=== PATIENT | male | born 1930 | race Asian ===

== ENCOUNTER 2016-10-17 21:02 | Inpatient (IN) | payer OTHER ==
[~2016-10-17] VITALS: Ht 167.6 cm; Wt 51.7 kg
[~2016-10-17 21:02] MED LIST: CARAFATE1 GM PO; CRESTOR5 M1 PO; FLO4 PO; FOLIC ACID1 MG PO; LOVAZA1 G1 PO; NAMENDA10 M2 PO; PLA75 PO; POLYETHYLENE GL1 PO1 PO; PRILOSEC40 MG PO; PROSCAR5 MG PO; SINGULAIR10 MG PO
[2016-10-17 21:55] LABS: microscopic required? NO
[2016-10-17 21:55] LABS: BASOPHIL % 0.7 % (0-2); PLATELET COUNT 229 x10^3mcL (130-400); RED CELL DISTRIBUTION WIDTH 14.2 % (11.5-14.5)
[2016-10-17 22:01] LABS: urine erythrocyte NEGATIVE (NEGATIVE)
[2016-10-17 22:02] LABS: CALCIUM 8.7 mg/dL (8.5-10.1); CARBON DIOXIDE 24.4 mmol/L (21-32); CHLORIDE SERUM 104 mmol/L (98-107); CREATININE SERUM 1.4 mg/dL (0.7-1.3); GLUCOSE SERUM 137 mg/dL (74-106); POTASSIUM SERUM 4.4 mmol/L (3.5-5.1); SODIUM SERUM 139 mmol/L (136-145)
[2016-10-17 22:06] LABS: ALKALINE PHOSPHATASE 78 U/L (46-116); ALT/SGPT 29 U/L (16-63); AST/SGOT 24 U/L (15-37); BILIRUBIN TOTAL 1.17 mg/dL (0.20-1.00); TOTAL PROTEIN, SERUM 6.8 g/dL (6.4-8.2)
[2016-10-18] VITALS (8 sets, daily range): BP systolic 100–139; BP diastolic 55–69; Ht 167.6 cm; Wt 51.7 kg
[2016-10-18 00:46] LABS: MAGNESIUM 1.9 mg/dL (1.8-2.4); PHOSPHOROUS 3.1 mg/dL (2.5-4.9)
[2016-10-18 00:49] LABS: CHOLESTEROL/HDL RATIO 2.1
[2016-10-18 00:54] LABS: FREE T4 1.44 ng/dL (0.76-1.46); FREE THYROXINE INDEX 2.6 ug/dL (1.4-4.5)
[2016-10-18 00:56] LABS: T3 TOTAL 0.45 ng/mL
[2016-10-18 06:21] LABS: CALCIUM 7.8 mg/dL (8.5-10.1); CARBON DIOXIDE 21.5 mmol/L (21-32); CHLORIDE SERUM 107 mmol/L (98-107); CREATININE SERUM 1.1 mg/dL (0.7-1.3); GLUCOSE SERUM 107 mg/dL (74-106); MAGNESIUM 1.9 mg/dL (1.8-2.4); PHOSPHOROUS 2.9 mg/dL (2.5-4.9); POTASSIUM SERUM 3.7 mmol/L (3.5-5.1); SODIUM SERUM 138 mmol/L (136-145)
[2016-10-18 07:14] LABS: BASOPHIL % 0.1 % (0-2); PLATELET COUNT 177 x10^3mcL (130-400); RED CELL DISTRIBUTION WIDTH 14.1 % (11.5-14.5)
[2016-10-18] MEDS ORDERED: LEVAQUIN750 MG PO (17:49)
[2016-10-18] MEDS ORDERED: NOVAPLUS CLINDA1 SO1 IV (17:50)
[2016-10-18] MEDS ORDERED: IPRATROPIUM BROM3 M2 HHN ×2 (17:51)
[2016-10-18] MEDS ORDERED: LAC PO (17:52)
== END 2016-10-18 20:05 | disposition short-term general hospital (02) | DRG 177 ==
LOC: ED 21:02 → DU 23:11
PROVIDERS: Emergency Medicine; ADMIT Family Medicine
DX: J69.0 Pneumonitis due to inhalation of food and vomit (principal); G93.41 Metabolic encephalopathy; N17.0 Acute kidney failure with tubular necrosis; Z68.1 Body mass index [BMI] 19.9 or less, adult; E44.0 Moderate protein-calorie malnutrition; S80.01XA Contusion of right knee, initial encounter; S09.90XA Unspecified injury of head, initial encounter; K59.00 Constipation, unspecified; N40.0 Benign prostatic hyperplasia without lower urinary tract symptoms; G30.9 Alzheimer's disease, unspecified; I25.10 Atherosclerotic heart disease of native coronary artery without angina pectoris; F02.80 Dementia in other diseases classified elsewhere, unspecified severity, without behavioral disturbance, psychotic disturbance, mood disturbance, and anxiety; R29.6 Repeated falls; W18.39XA Other fall on same level, initial encounter; Y93.89 Activity, other specified; Y92.018 Other place in single-family (private) house as the place of occurrence of the external cause
CPT/HCPCS: 36600; 83880; 84439; 92610-GN; J1956; J3490; J7030; J7040; J7620; Q0092